=== PATIENT | female | born 1970 | race Caucasian/White ===

== ENCOUNTER 2018-02-26 08:38 | Emergency (ER) | payer OTHER ==
[~2018-02-26] VITALS: Ht 157.5 cm; Wt 45.4 kg
[2018-02-26] MEDS ORDERED: MOBIC15 MG PO (09:39)
[2018-02-26 10:04] VITALS: BP 118/78
== END 2018-02-26 10:05 | disposition home or self-care (01) ==
LOC: ER 08:38
DX: S40.011A Contusion of right shoulder, initial encounter (principal); J45.909 Unspecified asthma, uncomplicated; F17.210 Nicotine dependence, cigarettes, uncomplicated; V22.0XXA Motorcycle driver injured in collision with two- or three-wheeled motor vehicle in nontraffic accident, initial encounter; Y93.89 Activity, other specified; Y92.89 Other specified places as the place of occurrence of the external cause; Y99.8 Other external cause status

== ENCOUNTER 2020-01-02 18:29 | Emergency (ER) | payer OTHER ==
[~2020-01-02] VITALS: Ht 154.9 cm; Wt 53.5 kg
[~2020-01-02 18:29] MED LIST: MOBIC15 MG PO
[2020-01-02] MEDS ORDERED: FLONASE 0.05%50 MCG NASAL (19:34)
[2020-01-02 19:49] VITALS: BP 125/73
== END 2020-01-02 19:45 | disposition home or self-care (01) ==
LOC: ER 18:29
DX: B34.9 Viral infection, unspecified (principal); Z20.828 Contact with and (suspected) exposure to other viral communicable diseases; J45.909 Unspecified asthma, uncomplicated; F17.210 Nicotine dependence, cigarettes, uncomplicated; Z98.890 Other specified postprocedural states; Z90.89 Acquired absence of other organs; Z79.899 Other long term (current) drug therapy; Z88.8 Allergy status to other drugs, medicaments and biological substances

== ENCOUNTER 2020-03-07 23:37 | Emergency (ER) | payer OTHER ==
[~2020-03-07] VITALS: Ht 154.9 cm; Wt 51.7 kg
[~2020-03-07 23:37] MED LIST changes: +FLONASE 0.05%50 MCG NASAL
[2020-03-08] MEDS ORDERED: AUGMENTIN 875-1 EACH PO (00:38)
[2020-03-08 01:20] VITALS: BP 163/94
== END 2020-03-08 01:21 | disposition home or self-care (01) ==
LOC: ER 23:37
DX: K04.7 Periapical abscess without sinus (principal); J45.909 Unspecified asthma, uncomplicated; F17.210 Nicotine dependence, cigarettes, uncomplicated; Z79.899 Other long term (current) drug therapy; Z88.8 Allergy status to other drugs, medicaments and biological substances